=== PATIENT | female | born 1995 | race Asian ===

== ENCOUNTER 2019-03-25 20:00 | Emergency (ER) | payer OTHER ==
--- NOTE | 2019-03-25 20:40 | ED ---
Respiratory - HPI Summary HPI Summary: The patient is a 23 y/o female arriving by ambulance to [facility] with a chief complaint of cough and chills onset around 12:00 today. She reports that she has been in contact with someone who had been in [place] and came into contact with someone with coronavirus, but she is unsure if her friend has contracted any sickness. Today, she developed a nonproductive cough and chills, but she denies any fevers or body aches. She was sent by [facility]. 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 No PMHx. Nonsmoker, no EtOH, no substance use. - History of Current Complaint Chief Complaint: EDFluSymptoms Stated Complaint: FLU SYMPTOMS PER EMS Time Seen by Provider: 03/25/19 20:17 Hx Obtained From: Patient Onset/Duration: Sudden Onset, Lasting Hours, Still Present Initial Severity: Mild Current Severity: Mild Pain Intensity: 0 Character: Cough (Nonproductive) Sputum Amount: None Aggravating Factor(s): Nothing Alleviating Factor(s): Nothing Associated Signs and Symptoms: Chills - Allergy/Home Medications Allergies/Adverse Reactions: Allergies Allergy/AdvReac Type Severity Reaction Status Date / Time No Known Allergies Allergy Verified 03/25/19 20:18 Home Medications: Home Medications NK [No Home Medications Reported] 03/25/19 [History Confirmed 03/25/19] PMH/Surg Hx/FS Hx/Imm Hx Endocrine/Hematology History: Denies: Hx Diabetes Respiratory History: Denies: Hx Asthma - Surgical History Surgical History: None Surgery Procedure, Year, and Place: none Infectious Disease History: No Infectious Disease History: Denies: Traveled Outside the [place] in Last 30 Days - Family History Known Family History: Negative: Hypertension, Diabetes - Social History Alcohol Use: None Hx Substance Use: No Substance Use Type: Reports: None Hx Tobacco Use: No Smoking Status (MU): Never Smoked Tobacco Review of Systems Positive: Chills. Negative: Fever Positive: Cough - nonproductive Negative: Myalgia All Other Systems Reviewed And Are Negative: Yes Physical Exam - Summary Physical Exam Summary: Constitutional: Well-developed, Well-nourished, Alert. (-) Distressed Skin: Warm, Dry HENT: Normocephalic; Atraumatic Eyes: Conjunctiva normal Neck: Musculoskeletal ROM normal neck. (-) JVD, (-) Stridor, (-) Nuchal rigidity Cardio: Rhythm regular, rate normal, Heart sounds normal; Intact distal pulses; Radial pulses are 2+ and symmetric. (-) Murmur Pulmonary/Chest wall: Effort normal. (-) Respiratory distress, (-) Wheezes, (-) Rales Abd: Soft, (-) tenderness, (-) Distension, (-) Guarding, (-) Rebound Musculoskeletal: (-) Edema Lymph: (-) Cervical adenopathy Neuro: Alert, Oriented x3 Psych: Mood and affect Normal Triage Information Reviewed: Yes Vital Signs On Initial Exam: Initial Vitals Temp Pulse Resp BP Pulse Ox 99.0 F 95 18 125/80 98 03/25/19 20:14 03/25/19 20:14 03/25/19 20:14 03/25/19 20:14 03/25/19 20:14 Vital Signs Reviewed: Yes Procedures - Sedation Patient Received Moderate/Deep Sedation with Procedure: No Diagnostics - Vital Signs Vital Signs Temp Pulse Resp BP Pulse Ox 03/25/19 20:14 99.0 F 95 18 125/80 98 - Laboratory Lab Statement: Any lab studies that have been ordered have been reviewed, and results considered in the medical decision making process. Re-Evaluation - Re-Evaluation First Eval Comment: Blessing Buchanan, nurse, [facility] , who will follow with the patient's case Disposition - Course Course Of Treatment: 23 y/o F p/w dry cough and chills. - afebrile, lungs CTAB. Concern from [place] about exposure to coronavirus, d/w health department. Contact from [place] not sick, low suspicion. Flu negative. - Diagnoses Provider Diagnoses: URI (upper respiratory infection) Discharge ED - Sign-Out/Discharge Documenting (check all that apply): Patient Departure - Patient will be discharged home. - Discharge Plan Condition: Stable Disposition: HOME Patient Education Materials: Upper Respiratory Infection (ED) Referrals: [facility] [Provider Group] - 3 Days Additional Instructions: You were seen in the emergency department for for respiratory infection. Your flu is negative. We discussed your case with the health department, does not think you warranted further workup for coronavirus at this time Please follow up with your primary care doctor in next 2-3 days and return to emergency department for worsening cough, fevers, or concerning symptoms. It was a pleasure taking care of you today. - Billing Disposition and Condition Condition: STABLE Disposition: Home - Attestation Statements Document Initiated by Mario: Yes Documenting Scribe: Fabienne Paula Provider For Whom Mario is Documenting (Include Credential): Dr. Norris Galicia MD Scribe Attestation: I, Fabienne Paula, scribed for Dr. Norris Galicia MD on 03/25/19 at 2203. Scribe Documentation Reviewed: Yes Provider Attestation: The documentation as recorded by the Fabienne pena accurately reflects the service I personally performed and the decisions made by me, Dr. Norris Galicia MD Status of Scribe Document: Viewed
[2019-03-25 21:55] LABS: Influenza A Molecular NEGATIVE (Negative); Influenza B Molecular NEGATIVE (Negative)
[2019-03-25 22:30] VITALS: BP 107/61
== END 2019-03-25 22:27 | disposition home or self-care (01) ==
LOC: ED 20:00
DX: J06.9 Acute upper respiratory infection, unspecified (principal)
CPT/HCPCS: 99282